=== PATIENT | male | born 1945 | race Caucasian/White ===

== ENCOUNTER → 2023-11-01 11:27 | Outpatient (REF) | payer MEDICARE, OTHER, SELFPAY ==
[2023-11-01 14:22] LABS: TSH Reflex To Free T4 0.21 uIU/ml (0.47-4.68)
[2023-11-01 14:51] LABS: Free T4 0.83 ng/dl (0.78-2.19)
== END ==
LOC: REG 11:27
PROVIDERS: ATTENDING PHYSICIAN Family Medicine
DX: R94.6 Abnormal results of thyroid function studies (principal)
CPT/HCPCS: 36415; 84439; 84443

== ENCOUNTER → 2023-11-08 08:10 | Outpatient (REF) | payer MEDICARE, OTHER, SELFPAY ==
[2023-11-08 08:49] LABS: % Basophils 0.4 % (0-2); % Eosinophils 2.7 % (0-6); % Immature Granulocytes 0.4 % (0-0.5); % Lymphocytes 28.7 % (20.5-51.1); % Monocytes 7.4 % (1.7-9.3); % Neutrophils 60.4 % (42.2-75.2); Absolute Eosinophils 0.2 10^3/uL (0-0.7); Absolute Lymphocytes 1.6 10^3/uL (1.2-3.4); Absolute Monocytes 0.4 10^3/uL (0.1-0.6); Absolute Neutrophils 3.4 10^3/uL (1.4-6.5); Hemoglobin 15.6 g/dL (13.0-18.0); Mean Corp Hgb Conc. 34.7 g/dL (33.0-37.0); Mean Corpuscular Hgb 31.8 pg (27.0-31.0); Mean Corpuscular Volume 91.8 fL (80.0-94.0); Mean Platelet Volume 9.4 fL (7.4-10.4); Nucleated Red Blood Cells % 0 % (-); Platelet Count 171 10^3/uL (130-400); Red Cell Dist. Width 12.9 % (11.5-14.5); White Blood Cell Count 5.6 10^3/uL (4.8-10.8)
[2023-11-08 10:42] LABS: ALT (SGPT) < 10 U/L (0-50); AST (SGOT) 16 U/L (17-59); Albumin 4.2 g/dl (3.5-5.0); Alkaline Phosphatase 74 U/L (38-126); Blood Urea Nitrogen 28 mg/dl (9-20); Calcium 9.5 mg/dl (8.4-10.2); Carbon Dioxide 29 mmol/L (22-30); Chloride 104 mmol/L (98-107); Glucose 86 mg/dl (70-99); HDL Cholesterol 66 mg/dl; LDL Cholesterol, Calculated 113 mg/dl; Sodium 139 mmol/L (135-145); Total Bilirubin 0.9 mg/dl (0.2-1.3); Total Cholesterol 192 mg/dl (50-199); Total Protein 6.4 g/dl (6.3-8.2); Triglyceride 65 mg/dl (10-149); Very Low Density Lipoprotein 13 mg/dl (0-30); eGFR > 60.00
[2023-11-08 11:01] LABS: PSA, Total - Diagnostic 0.64 ng/ml (0.0-4.0)
== END ==
LOC: REG 08:10
PROVIDERS: ATTENDING PHYSICIAN Family Medicine
DX: E78.00 Pure hypercholesterolemia, unspecified (principal); Z13.228 Encounter for screening for other metabolic disorders; Z13.0 Encounter for screening for diseases of the blood and blood-forming organs and certain disorders involving the immune mechanism; C61 Malignant neoplasm of prostate
CPT/HCPCS: 36415; 80053; 80061; 84153; 85025

== ENCOUNTER → 2023-12-04 09:21 | Outpatient (REF) | payer MEDICARE, OTHER, SELFPAY ==
[2023-12-04 10:55] LABS: Free T3 3.09 pg/ml (2.77-5.27); Free T4 0.81 ng/dl (0.78-2.19)
== END ==
LOC: REG 09:21
PROVIDERS: ATTENDING PHYSICIAN Family Medicine
DX: Z13.29 Encounter for screening for other suspected endocrine disorder (principal); R94.6 Abnormal results of thyroid function studies
CPT/HCPCS: 36415; 84439; 84443; 84481

== ENCOUNTER → 2023-12-19 07:17 | Outpatient (REF) | payer MEDICARE, OTHER, SELFPAY | LOC: DHCBC/DCA 07:17 | PROVIDERS: ATTENDING PHYSICIAN Family Medicine | DX: R06.02 Shortness of breath (principal) | CPT/HCPCS: 78452; 93017; A9500; J2785 ==

== ENCOUNTER → 2024-01-04 06:45 | Outpatient (REF) | payer MEDICARE, OTHER, SELFPAY | LOC: RSP 06:45 | PROVIDERS: ATTENDING PHYSICIAN Family Medicine | DX: R06.02 Shortness of breath (principal) | CPT/HCPCS: 94727; 94729; 88738; 94010 ==

== ENCOUNTER → 2024-01-25 13:27 | Outpatient (REF) | payer MEDICARE, OTHER, SELFPAY | LOC: RAD 13:27 | PROVIDERS: ATTENDING PHYSICIAN Family Medicine | DX: R07.81 Pleurodynia (principal); R05.3 Chronic cough | CPT/HCPCS: 71101 ==

== ENCOUNTER → 2024-04-17 08:37 | Outpatient (REF) | payer MEDICARE, OTHER, SELFPAY ==
[2024-04-17 16:01] LABS: PSA, Total - Diagnostic 0.62 ng/ml (0.0-4.0)
== END ==
LOC: REG 08:37
PROVIDERS: ATTENDING PHYSICIAN Specialist; FAMILY PHYSICIAN Family Medicine
DX: C61 Malignant neoplasm of prostate (principal)
CPT/HCPCS: 36415; 84153

== ENCOUNTER → 2024-11-18 07:46 | Outpatient (REF) | payer MEDICARE, OTHER, SELFPAY ==
[2024-11-18 08:40] LABS: Hematocrit 44.8 % (39.0-52.0); Hemoglobin 14.9 g/dL (13.0-18.0); Mean Corp Hgb Conc. 33.3 g/dL (33.0-37.0); Mean Corpuscular Volume 92.4 fL (80.0-94.0); Nucleated Red Blood Cells % 0 % (-); Platelet Count 186 10^3/uL (130-400); Red Cell Dist. Width 12.8 % (11.5-14.5)
[2024-11-18 09:26] LABS: ALT (SGPT) < 10 U/L (0-50); AST (SGOT) 15 U/L (17-59); Albumin 4.5 g/dl (3.5-5.0); Alkaline Phosphatase 71 U/L (38-126); Blood Urea Nitrogen 40 mg/dl (9-20); Calcium 9.4 mg/dl (8.4-10.2); Carbon Dioxide 28 mmol/L (22-30); Chloride 106 mmol/L (98-107); Glucose 87 mg/dl (70-99); HDL Cholesterol 64 mg/dl; LDL Cholesterol, Calculated 116 mg/dl; Potassium 4.3 mmol/L (3.5-5.1); Sodium 140 mmol/L (135-145); Total Protein 6.5 g/dl (6.3-8.2); Very Low Density Lipoprotein 19 mg/dl (0-30); eGFR > 60.00
[2024-11-18 09:45] LABS: PSA, Total - Diagnostic 0.62 ng/ml (0.0-4.0)
== END ==
LOC: REG 07:46
PROVIDERS: ATTENDING PHYSICIAN Specialist; FAMILY PHYSICIAN Family Medicine
DX: E78.00 Pure hypercholesterolemia, unspecified (principal); C61 Malignant neoplasm of prostate; R94.6 Abnormal results of thyroid function studies; I87.2 Venous insufficiency (chronic) (peripheral); Z13.228 Encounter for screening for other metabolic disorders
CPT/HCPCS: 36415; 80053; 80061; 84153; 84443; 85025